=== PATIENT | female | born 1975 | race Caucasian/White ===

== ENCOUNTER 2020-03-18 18:39 | Emergency (ER) | payer MEDICAID ==
[~2020-03-18] VITALS: Ht 162.6 cm; Wt 80.0 kg
[2020-03-18 19:04] VITALS: BP 133/83
[2020-03-18] MEDS ORDERED: FLUC150T66 PO (19:13)
[2020-03-18] MEDS ORDERED: DOXY100C43 PO (19:13)
[2020-03-18] MEDS ORDERED: LACT1TAB27 PO (19:13)
== END 2020-03-18 19:27 | disposition home or self-care (01) ==
LOC: ER 18:40
DX: R21 Rash and other nonspecific skin eruption (principal); R53.83 Other fatigue; Z79.2 Long term (current) use of antibiotics; Z79.899 Other long term (current) drug therapy
CPT/HCPCS: 99283

== ENCOUNTER 2020-05-04 11:09 | Emergency (ER) | payer MEDICAID ==
[~2020-05-04] VITALS: Ht 162.6 cm; Wt 70.6 kg
[~2020-05-04 11:09] MED LIST: LACT1TAB27 PO
[2020-05-04 11:33] VITALS: BP 162/98
== END 2020-05-04 12:39 | disposition left against medical advice (07) ==
LOC: ER 11:10
DX: A49.01 Methicillin susceptible Staphylococcus aureus infection, unspecified site (principal); Z53.21 Procedure and treatment not carried out due to patient leaving prior to being seen by health care provider

== ENCOUNTER 2020-05-12 09:40 | Emergency (ER) | payer MEDICAID ==
[~2020-05-12] VITALS: Ht 162.6 cm; Wt 79.5 kg
[2020-05-12 09:42] VITALS: BP 132/89
[2020-05-12] MEDS ORDERED: azithromycin 250mg tablet PO ONE (10:15)
[2020-05-12] MEDS ORDERED: CefTRIAXone 1000mg IM Kit (w/lidocaine diluent) IM ONE (10:15)
[2020-05-12] MEDS ORDERED: PENICILLIN G BENZATHINE 2,400,000 UNIT/4 ML SYRINGE IM ONE (10:15)
[2020-05-12 10:28] LABS: CLARITY,URINE CLOUDY (Clear); GLUCOSE, URINE NEGATIVE (Neg); KETONES,URINE TRACE mg/dl (Neg); LEUKOCYTE ESTERASE ,URINE NEGATIVE (Neg); NITRITES, URINE NEGATIVE (Neg); OCCULT BLOOD,URINE NEGATIVE (Neg); PH,URINE 8.5 (4.8-8.0); PROTEIN,URINE TRACE mg/dl (Neg)
[2020-05-12 10:29] LABS: URINE HCG NEGATIVE (NEG)
[2020-05-12 10:34] LABS: COLOR,URINE DARK YELLOW (Yellow); UA COLLECTION TYPE CLN CATCH MIDSTREAM
[2020-05-12 10:35] LABS: SQUAMOUS EPITHELIAL CELL,UR MANY /LPF (FEW)
[2020-05-12 10:36] LABS: BACTERIA,URINE 4+ /HPF (Neg)
[2020-05-12 10:37] LABS: MUCUS STRANDS MANY /LPF (Neg); RBC,URINE NONE SEEN /HPF (0-2)
[2020-05-12 10:39] LABS: AMORPHOUS PHOSPHATES 4+
[2020-05-12] MEDS ORDERED: DOXY100C77 PO (10:50)
== END 2020-05-12 10:55 | disposition home or self-care (01) ==
LOC: ER 09:41
DX: N89.8 Other specified noninflammatory disorders of vagina (principal); Z79.2 Long term (current) use of antibiotics; Z79.899 Other long term (current) drug therapy
CPT/HCPCS: 36415; 81001; 81025; 87491; 87591; 96372; 99284; J0561; J0696; Q0112

== ENCOUNTER 2020-08-06 14:26 | Emergency (ER) | payer MEDICAID ==
[~2020-08-06] VITALS: Ht 167.6 cm; Wt 75.0 kg
[2020-08-06 14:32] VITALS: BP 140/99
[2020-08-06] MEDS ORDERED: HYDR-3686 PO (14:39)
== END 2020-08-06 15:10 | disposition home or self-care (01) ==
LOC: ER 14:27
DX: Z00.00 Encounter for general adult medical examination without abnormal findings (principal); K59.00 Constipation, unspecified; F15.90 Other stimulant use, unspecified, uncomplicated; Z79.899 Other long term (current) drug therapy
CPT/HCPCS: 99283